=== PATIENT | female | born 1970 | race Hispanic/Latino ===

== ENCOUNTER 2022-04-20 23:35 | Emergency (ER) | payer SELFPAY ==
[2022-04-21] MEDS ORDERED: Metoclopramide HCl 10 MG/2 ML VIAL ONE (01:42)
[2022-04-21] MEDS ORDERED: diphenhydrAMINE 50 MG/ML VIAL ONE (01:42)
[2022-04-21] MEDS ORDERED: Ketorolac Tromethamine 30 MG/ML VIAL ONE (01:42)
== END 2022-04-21 03:44 | disposition home or self-care (01) ==
LOC: ERS 23:35
DX: R51.9 Headache, unspecified (principal); K02.9 Dental caries, unspecified; I10 Essential (primary) hypertension; E78.5 Hyperlipidemia, unspecified; E11.9 Type 2 diabetes mellitus without complications
CPT/HCPCS: 96365; 96375; J1200; J1885; J2765